=== PATIENT | male | born 1970 | race Caucasian/White ===

== ENCOUNTER 2024-05-18 22:37 | Emergency (ER) | payer BC, SELFPAY ==
--- NOTE | ~2024-05-18 | XR_ITS ---
CHEST RADIOGRAPH CLINICAL HISTORY: cough . COMPARISON: 12/24/2018 TECHNIQUE: Single portable view of the chest. FINDINGS The cardiomediastinal silhouette is unremarkable. The lungs are clear. Visualized osseous structures and soft tissues are unremarkable. IMPRESSION: No focal infiltrate or effusion. Reviewed, dictated and finalized at location A.
[2024-05-18 22:44] VITALS: BP 143/89; PULSE 67; RESP 16; TEMP 36.2; O2SAT 100
--- NOTE | 2024-05-18 23:38 | ED.GENADULT ---
HPI - General Adult General Chief complaint: Upper Respiratory Infection Stated complaint: cough for a month, SOB Time Seen by Provider: 05/18/24 23:15 Source: patient Mode of arrival: ambulatory Limitations: no limitations History of Present Illness HPI narrative: This is a 53-year-old male who presents to the ED for chief complaint of cough x1 month. Patient reports having episodes of shortness of breath with coughing fits. States that he has been given steroids by urgent care as well as inhaler but has not tried the inhaler area. Reports chest congestion and feeling as if he needs to cough something up. He has concern for possible walking pneumonia as advised by his family. Denies fevers, chills, nausea, vomiting, sore throat, chest pain, back pain Related Data Home Medications Medication Instructions Recorded Confirmed ibuprofen 200 mg tablet (Advil) 200 mg PO Q6H PRN 07/14/19 Allergies Allergy/AdvReac Type Severity Reaction Status Date / Time No Known Allergies Allergy Verified 05/18/24 22:46 Review of Systems Review of Systems: All systems as dictated in [facility] Past Medical History Medical History (Updated 05/18/24 @ 23:54 by Dustin Bond PA-C) Hernia Surgical History Surgical History (Updated 07/14/19 @ 14:19 by Maira Hernandez CMA) H/O hernia repair x2 History of appendectomy History of eye surgery x2 History of shoulder surgery x2 Hx of tonsillectomy Family History Family History (Updated 06/10/18 @ 08:52 by DOCTOR UNKNOWN) Father Family history of diabetes mellitus in first degree relative Family history of type 2 diabetes mellitus Diabetes mellitus Family history of malignant neoplasm Mother Patient's mother is in good health Sibling Patient's sister is in good health Grandparent Family history of Alzheimer's disease Family history of malignant neoplasm Other Hypertension Social History Social History (Updated 07/14/19 @ 14:20 by Maira Hernandez CMA) Smoking status: Former smoker Smoking end date: 08/10/06 Alcohol intake: current Alcohol use details: occasional Exam Narrative: GENERAL: Well-appearing, well-nourished, and in no acute distress. HEAD: Normocephalic, atraumatic. EYES: PERRLA and EOMI. ENT: Nares clear, no rhinorrhea or epistaxis. Mucous membranes moist. Oropharynx without tonsillar hypertrophy exudate or other lesions. NECK: Supple. No adenopathy or masses. CHEST: No respiratory distress. Clear to auscultation. No wheezes rales or rhonchi. 99% room air. HEART: Regular rate and rhythm. No murmur heard. Normal peripheral pulses. ABDOMEN: Soft, nontender, nondistended, normal active bowel sounds. MSK: Normal range of motion. No edema. SKIN: Warm, dry, no rash. NEURO: Alert and oriented x4. No focal deficits. PSYCH: Normal mood and affect. Course Vital Signs Vital signs: Vital Signs Temperature 97.2 F L 05/18/24 22:44 Pulse Rate 67 05/18/24 22:44 Respiratory Rate 16 05/18/24 22:44 Blood Pressure 143/89 H 05/18/24 22:44 Pulse Oximetry 100 05/18/24 22:44 Oxygen Delivery Room Air 05/18/24 22:44 Temperature 97.2 F L 05/18/24 22:44 Pulse Rate 67 05/18/24 22:44 Respiratory Rate 16 05/18/24 22:44 Blood Pressure 143/89 H 05/18/24 22:44 Pulse Oximetry 100 05/18/24 22:44 Oxygen Delivery Room Air 05/18/24 22:44 Medical Decision Making MDM Narrative Medical decision making narrative: This is a 53 yo male who presents to the ED for 1 month of persistent cough. Vitals are normal. Exam is unremarkable overall. Cough is reproduced during inspiration but no adventitious breath sounds are heard. Saturating well on room air. Chest x-ray is overall unremarkable. He is describing some incidence of productive cough so antibiotics were prescribed for possible atypical pneumonia. Rx for doxycycline for 1 week. Already has steroids and albuterol prescribed. We discussed
== END 2024-05-19 00:13 | disposition home or self-care (01) ==
PROVIDERS: Emergency Provider Physician Assistant; PCP Internal Medicine
DX: R05.1 Acute cough (principal); Z87.891 Personal history of nicotine dependence
CPT/HCPCS: 71045; 99283

== ENCOUNTER 2025-07-02 16:27 | Emergency (ER) | payer BC, SELFPAY ==
--- NOTE | ~2025-07-02 | XR_ITS ---
EXAMINATION: XR hand RT min 3V, 07/02/2025 17:09 [employer] HISTORY: RING FINGER INJURY COMPARISON: No comparisons available. Findings: No acute fracture or malalignment. No significant degenerative changes. Soft tissues unremarkable. Impression: No acute fracture or malalignment. Reviewed, dictated and finalized at location P. TRANSPORT DRIVER Impression: No acute fracture or malalignment.
[2025-07-02 16:31] VITALS: BP 154/84; PULSE 68; RESP 18; TEMP 36.8; O2SAT 100
--- NOTE | 2025-07-02 17:46 | ED.GENADULT ---
HPI - General Adult General Chief complaint: Extremity Injury, Upper Stated complaint: R ring finger injury Time Seen by Provider: 07/02/25 16:33 History of Present Illness HPI narrative: 54-year-old male presented to the emergency department for evaluation for a injury to his right ring finger. Patient states he was wrestling approximately 1.5 weeks ago when he injured his hand. Patient does have some swelling of the proximal 4th finger on the right hand. Patient denies any numbness. Patient does feel his glass cut off tender is weakened on that hand Related Data Home Medications ?Medication ?Instructions ?Recorded ?Confirmed ?Last Taken ?Type ibuprofen 200 mg tablet (Advil) 200 mg PO Q6H PRN 07/14/19 Unknown History Allergies Allergy/AdvReac Type Severity Reaction Status Date / Time No Known Allergies Allergy Verified 07/05/25 08:26 Review of Systems Review of Systems: All systems reviewed & are unremarkable except as noted in HPI and below PMFSH Past Medical History Medical History (Updated 07/05/25 @ 08:42 by Harry Ramos MD) Hernia Surgical History Surgical History (Updated 07/14/19 @ 14:19 by Maira Hernandez CMA) Hx of tonsillectomy History of appendectomy H/O hernia repair x2 History of eye surgery x2 History of shoulder surgery x2 Family History Family History (Updated 06/10/18 @ 08:52 by DOCTOR UNKNOWN) Father Family history of diabetes mellitus in first degree relative Family history of type 2 diabetes mellitus Diabetes mellitus Family history of malignant neoplasm Mother Patient's mother is in good health Sibling Patient's sister is in good health Grandparent Family history of Alzheimer's disease Family history of malignant neoplasm Other Hypertension Social History Social History Smoking status: Former smoker Smoking end date: 08/10/06 Alcohol intake: current Alcohol use details: occasional Exam Narrative: APPEARANCE: Well appearing, no pain, no distress, well-nourished. HEAD: normocephalic, atraumatic. EYES: PERRLA/EOMI, conjunctivae clear. NOSE: Normal no drainage EARS:TMS clear with good light reflex. THROAT: Pharynx clear, no exudate. NECK: Supple. No adenopathy, no masses. RESPIRATORY: Airway patent, respirations nonlabored. Clear to auscultation bilaterally, no rales, rhonchi, wheezing. CARDIOVASCULAR: Regular rate and rhythm without murmurs rubs or gallops. ABDOMINAL: Soft, nontender, nondistended, normal bowel sounds MUSCULOSKELETAL: Swelling of the proximal right 4th finger, no erythema. NEURO: Alert. Cranial nerves II through XII intact. Good gait. Good coordination SKIN: Warm, dry. Normal Color Course Vital Signs Vital signs: Vital Signs Temperature 98.2 F 07/02/25 16:31 Pulse Rate 68 07/02/25 16:31 Respiratory Rate 18 07/02/25 16:31 Blood Pressure 154/84 H 07/02/25 16:31 Pulse Oximetry 100 07/02/25 16:31 Oxygen Delivery Room Air 07/02/25 16:31 Temperature 98.2 F 07/02/25 16:31 Pulse Rate 91 07/02/25 17:53 Respiratory Rate 16 07/02/25 17:53 Blood Pressure 141/86 H 07/02/25 17:53 Pulse Oximetry 98 07/02/25 17:53 Oxygen Delivery Room Air 07/02/25 16:31 Medical Decision Making MDM Narrative Medical decision making narrative: 54 year old male present to the emergency department for evaluation for injury to right ring finger. No acute fractures or dislocations noted on imaging. Patient was provided janelle taping for splinting for the affected finger. Patient was advised to take NSAIDs. Patient was provided follow-up with Plastic surgery. Suspect finger strain possible tendon injury. Patient does have full range of motion of the affected finger though. Patient was comfortable with the plan for discharge and close follow-up. Differential Diagnosis Differential Diagnosis: Finger sprain, finger fracture Vital Signs Vital Signs: Vital Signs Temperature 98.2 F 07/02/25 16:31 Pulse Rate 68 07/02/25 16:31 Respiratory Rate 18 07/02/25 16:31 Blood Pressure 154/84 H 07/02/25 16:31 Pulse Oximetry 100 07/02/25 16:31 Oxygen Delivery Room Air 07/02/25 16:31 Temperature 98.2 F 07/02/25 16:31 Pulse Rate 91 07/02/25 17:53 Respiratory Rate 16 07/02/25 17:53 Blood Pressure 141/86 H 07/02/25 17:53 Pulse Oximetry 98 07/02/25 17:53 Oxygen Delivery Room Air 07/02/25 16:31 Discharge Plan Discharge Clinical Impression: Injury, finger Patient Disposition: Home Condition: Stable Instructions: Antibiotic Form, Tendinitis (ED) Additional Instructions: Janelle-tape or finger splint as directed. Naproxen as directed. Have close follow-up with hand surgery. If you have any worsening symptoms then please call or return to the emergency department. Patient Language: [place] Prescriptions: New naproxen [Naprosyn] 500 mg tablet 500 mg PO BID 7 Days Qty: 14 0RF No Action ibuprofen [Advil] 200 mg tablet 200 mg PO Q6H PRN doxycycline hyclate 100 mg capsule 100 mg PO BID 7 Days Qty: 14 0RF Follow-up/Referrals: Harry Ramos MD [Physician, Plastic Surgery] Wang Lamar DO [Primary Care Provider, Internal Medicine]
[2025-07-02 17:53] VITALS: BP 141/86; PULSE 91; RESP 16; O2SAT 98
== END 2025-07-02 18:00 | disposition home or self-care (01) ==
PROVIDERS: Emergency Provider Emergency Medicine; PCP Internal Medicine
DX: S69.91XA Unspecified injury of right wrist, hand and finger(s), initial encounter (principal); X58.XXXA Exposure to other specified factors, initial encounter; Z87.891 Personal history of nicotine dependence; Y93.72 Activity, wrestling
CPT/HCPCS: 73130; 99283